=== PATIENT | male | born 1955 | race Two or more races ===

== ENCOUNTER 2016-05-04 09:47 | Day surgery (SDC) | payer MEDICARE, MEDICAID ==
[~2016-05-04 09:47] MED LIST: LACTATED RINGERS 1,000 ML IV SCH
[2016-05-04] MEDS ORDERED: IV START KIT ONE (10:38)
[2016-05-04] MEDS ORDERED: LACTATED RINGERS 1,000 ML ONE (10:38)
[2016-05-04] MEDS ORDERED: MIDAZOLAM HCL 5 MG/5 ML VIAL ONE (10:55)
[2016-05-04] MEDS ORDERED: FENTANYL 250 MCG/5 ML AMP ONE (10:55)
--- NOTE | 2016-05-09 11:45 | SURGPATH ---
[facility] [address] [place] [id number] Patient Name: RIVAS ONEILL MR#: [id number] : 1955 Gender: M Specimen #: [id number] Collected: 05/04/2016 Received: 05/06/2016 Reported: 05/09/2016 Submitting Phys: BRANDON THURSTON Copy To Phys: [facility] LIZZETH MARQUEZ Clinical History / Pre-Operative Diagnosis: HISTORY OF SIGMOID TUBULAR ADENOMA Specimen Source / Surgical Procedure Performed: MIDTRANSVERSE POLYP Interpretation: COLON, MID TRANSVERSE, BIOPSY: - COLONIC MUCOSA SHOWING NO DIAGNOSTIC ABNORMALITIES. - NO EVIDENCE OF SIGNIFICANT INFLAMMATION OR MALIGNANCY. Electronically Signed Out Thad Henriquez M.D., Ph.D. Gross Description: The specimen is received in a formalin filled container labeled with the patient's name and "mid transverse polyp". Two hu biopsies are 0.2 and 0.4 cm. Totally embedded in one cassette. Richar Robledo, P.A. Microscopic Description: Examination of multiple levels from the mid transverse colon biopsy shows two fragments of histologically unremarkable colonic mucosa. The architecture is intact without evidence of distortion. There is no evidence of significant inflammation or malignancy. 1: [id number] K63.89
== END 2016-05-04 12:30 | disposition home or self-care (01) ==
LOC: SDC 09:47
PROVIDERS: ATTEND Internal Medicine Gastroenterology
PROC: 0DBL8ZX Excision of Transverse Colon, Via Natural or Artificial Opening Endoscopic, Diagnostic (ICD-10-PCS; principal; 2016-05-04)
DX: Z12.11 Encounter for screening for malignant neoplasm of colon (principal); K57.30 Diverticulosis of large intestine without perforation or abscess without bleeding; Z86.010 Personal history of colon polyps; I10 Essential (primary) hypertension; E78.5 Hyperlipidemia, unspecified; E11.9 Type 2 diabetes mellitus without complications; Z79.82 Long term (current) use of aspirin; J44.9 Chronic obstructive pulmonary disease, unspecified; I25.10 Atherosclerotic heart disease of native coronary artery without angina pectoris; Z79.84 Long term (current) use of oral hypoglycemic drugs